=== PATIENT | female | born 1965 | race Asian ===

== ENCOUNTER 2020-07-24 15:26 | Outpatient (REF) | payer BC, SELFPAY ==
[2020-07-24 16:50] LABS: Estimated Average Glucose 180 mg/dL; Hemoglobin A1c % 7.9 %
[2020-07-24 16:52] LABS: Alanine Aminotransferase 28 U/L (0-31); Albumin Level 4.4 g/dL (3.5-5.0); Alkaline Phosphatase 56 U/L (39-117); Anion Gap 14 (12-20); Aspartate Amino Transferase 27 U/L (5-31); Bilirubin Total 0.5 mg/dL (0.0-1.0); Blood Urea Nitrogen 27 mg/dL (9-16); Calcium 9.2 mg/dL (8.4-10.2); Carbon Dioxide 24 mmol/L (22-29); Chloride 104 mmol/L (96-108); Estimated Glomerular Filt Rate 47; Glucose Random 86 mg/dL (60-115); Potassium 4.2 mmol/l (3.3-5.1); Sodium 138 mmol/L (135-145); Total Protein 7.2 g/dL (6.5-8.0)
[2020-07-24 17:14] LABS: Vitamin D 25-OH Total 30.7 ng/mL (>30)
== END 2020-07-24 15:27 | disposition home or self-care (01) ==
LOC: HO.LAB 15:26
PROVIDERS: PCP Internal Medicine; Visit Provider Internal Medicine
DX: E11.65 Type 2 diabetes mellitus with hyperglycemia (principal); I10 Essential (primary) hypertension; E78.5 Hyperlipidemia, unspecified; E55.9 Vitamin D deficiency, unspecified
CPT/HCPCS: 80053; 82306; 83036

== ENCOUNTER → 2020-07-26 07:25 | Outpatient (BNVA) | payer BC, SELFPAY | PROVIDERS: PCP Internal Medicine; Referring Provider Internal Medicine; Visit Provider Internal Medicine | DX: E11.65 Type 2 diabetes mellitus with hyperglycemia (principal); E78.5 Hyperlipidemia, unspecified; I10 Essential (primary) hypertension; E55.9 Vitamin D deficiency, unspecified | CPT/HCPCS: 82947 ==

== ENCOUNTER 2020-07-26 08:13 | Outpatient (REF) | payer BC, SELFPAY ==
[2020-07-26 10:43] LABS: Anion Gap 11 (12-20); Blood Urea Nitrogen 16 mg/dL (9-16); Calcium 9.3 mg/dL (8.4-10.2); Carbon Dioxide 29 mmol/L (22-29); Chloride 104 mmol/L (96-108); Estimated Glomerular Filt Rate > 60; Glucose Random 123 mg/dL (60-115); Potassium 4.6 mmol/l (3.3-5.1); Sodium 139 mmol/L (135-145)
== END 2020-07-26 08:14 | disposition home or self-care (01) ==
LOC: HO.10HDL 08:13
PROVIDERS: Visit Provider Internal Medicine
DX: E11.65 Type 2 diabetes mellitus with hyperglycemia (principal); E55.9 Vitamin D deficiency, unspecified
CPT/HCPCS: 80048

== ENCOUNTER 2020-07-31 16:49 | Outpatient (REF) | payer BC, SELFPAY | END 2020-07-31 16:50 | disposition home or self-care (01) | LOC: HO.LAB 16:49 | PROVIDERS: Visit Provider Nurse Practitioner Family | DX: R05 Cough (principal); Z20.828 Contact with and (suspected) exposure to other viral communicable diseases | CPT/HCPCS: U0003 ==

== ENCOUNTER 2020-09-13 11:42 | Outpatient (REF) | payer BC, SELFPAY ==
[2020-09-17 21:52] LABS: HPV mRNA E6/E7 Not Detected (Not Detected)
== END 2020-09-13 11:43 | disposition home or self-care (01) ==
LOC: HO.LNP 11:42
PROVIDERS: Visit Provider Internal Medicine
DX: Z12.4 Encounter for screening for malignant neoplasm of cervix (principal); Z11.51 Encounter for screening for human papillomavirus (HPV)
CPT/HCPCS: 87624; 87625; 88141; 88142

== ENCOUNTER → 2020-10-25 09:03 | Outpatient (BNVA) | payer BC, SELFPAY | PROVIDERS: PCP Internal Medicine; Visit Provider Physician Assistant ==

== ENCOUNTER 2020-12-15 07:36 | Outpatient (REF) | payer BC, SELFPAY ==
--- NOTE | ~2020-12-15 | MM_ITS ---
EXAMINATION: MM SCREENING DIGITAL BREAST TOMOSYNTHESIS, BILATERAL CLINICAL INFORMATION: Screening. Asymptomatic. The lifetime risk of breast cancer based on the Tyrer-Cuzick Model is 8%. COMPARISON: Mammography: 06/04/2018, 08/01/2013, 07/09/2013 TECHNIQUE: Digital breast tomosynthesis is performed in both the craniocaudal and mediolateral oblique views along with computer-aided detection (CAD). Synthesized 2D images are generated from the tomosynthesis. FINDINGS: There are scattered areas of fibroglandular density (ACR BI-RADS breast composition Category b). There is fine fibronodular parenchymal pattern similar to prior studies. There is no interval mass or architectural abnormality or abnormal calcifications. Biopsy clip marker again noted retroareolar left breast. The bilateral axilla and skin contours are unremarkable. MM/MM tomosynthesis screening BI IMPRESSION: No mammographic evidence of malignancy. ASSESSMENT: BI-RADS 2: Benign RECOMMENDATION: Routine annual mammography screening. This patient's information was entered into a reminder system with a target due date for their next mammogram.
== END 2020-12-15 07:37 | disposition home or self-care (01) ==
LOC: HO.MAMMO 07:36
PROVIDERS: Visit Provider Internal Medicine
DX: Z12.31 Encounter for screening mammogram for malignant neoplasm of breast (principal)
CPT/HCPCS: 77063; 77067

== ENCOUNTER 2020-12-20 08:19 | Outpatient (REF) | payer BC, SELFPAY ==
[2020-12-20 09:14] LABS: Estimated Average Glucose 169 mg/dL; Hemoglobin A1c % 7.5 %
[2020-12-20 09:37] LABS: Alanine Aminotransferase 43 U/L (0-31); Albumin Level 4.2 g/dL (3.5-5.0); Alkaline Phosphatase 62 U/L (39-117); Anion Gap 11 (12-20); Aspartate Amino Transferase 33 U/L (5-31); Bilirubin Total 0.5 mg/dL (0.0-1.0); Blood Urea Nitrogen 14 mg/dL (9-16); Calcium 9.8 mg/dL (8.4-10.2); Carbon Dioxide 27 mmol/L (22-29); Chloride 108 mmol/L (96-108); Cholesterol 153 mg/dL; Estimated Glomerular Filt Rate > 60; Glucose Random 161 mg/dL (60-115); HDL Cholesterol 67 mg/dL; LDL Cholesterol Calculated 77 mg/dl; Sodium 141 mmol/L (135-145); Total Protein 7.1 g/dL (6.5-8.0); Triglycerides 45 mg/dL
[2020-12-20 09:55] LABS: Creatinine Urine 112.07 mg/dL; Microalbum/Creatinine Ratio Ur 15.1 ug/mg cr
[2020-12-20 09:59] LABS: Vitamin D 25-OH Total 16.4 ng/mL (>30)
[2020-12-21 04:16] LABS: LDL Cholesterol Direct 66 mg/dL (<100)
== END 2020-12-20 08:20 | disposition home or self-care (01) ==
LOC: HO.LAB 08:19
PROVIDERS: PCP Internal Medicine; Visit Provider Internal Medicine
DX: E11.65 Type 2 diabetes mellitus with hyperglycemia (principal); E55.9 Vitamin D deficiency, unspecified
CPT/HCPCS: 36415; 80053; 80061; 82043; 82306; 83036; 83721

== ENCOUNTER → 2020-12-27 07:20 | Outpatient (BNVA) | payer BC, SELFPAY | PROVIDERS: PCP Internal Medicine; Visit Provider Internal Medicine ==

== ENCOUNTER 2021-05-23 07:34 | Outpatient (REF) | payer BC, SELFPAY ==
[2021-05-23 08:29] LABS: Estimated Average Glucose 163 mg/dL; Hemoglobin A1c % 7.3 %
[2021-05-23 08:52] LABS: Alanine Aminotransferase 60 U/L (0-31); Albumin Level 4.4 g/dL (3.5-5.0); Alkaline Phosphatase 62 U/L (39-117); Anion Gap 13 (12-20); Aspartate Amino Transferase 46 U/L (5-31); Bilirubin Total 0.6 mg/dL (0.0-1.0); Blood Urea Nitrogen 17 mg/dL (9-16); Calcium 9.6 mg/dL (8.4-10.2); Carbon Dioxide 24 mmol/L (22-29); Chloride 104 mmol/L (96-108); Estimated Glomerular Filt Rate > 60; Glucose Random 84 mg/dL (60-115); Potassium 4.2 mmol/L (3.3-5.1); Sodium 137 mmol/L (135-145); Total Protein 7.4 g/dL (6.5-8.0)
[2021-05-23 09:44] LABS: Vitamin D 25-OH Total 17.9 ng/mL (>30)
== END 2021-05-23 07:35 | disposition home or self-care (01) ==
LOC: HO.LAB 07:34
PROVIDERS: PCP Internal Medicine; Visit Provider Internal Medicine
DX: E11.65 Type 2 diabetes mellitus with hyperglycemia (principal); E55.9 Vitamin D deficiency, unspecified
CPT/HCPCS: 36415; 80053; 82306; 83036

== ENCOUNTER 2024-05-12 07:48 | Outpatient (REF) | payer BC, SELFPAY ==
[2024-05-12 08:11] LABS: MANUAL DIFF FLAG NO
[2024-05-12 08:24] LABS: Basophils Percent Auto 0.4 % (0-2); Eosinophils Absolute Auto 0.1 X10*3/uL (0.0-0.4); Eosinophils Percent Auto 2.3 % (0-4); Hematocrit 39.4 % (37.0-47.0); Hemoglobin 12.8 g/dl (12.0-16.0); Imm Gran Abs Auto 0.01 X10*3/uL (0.00-0.03); Imm Gran Pct Auto 0.2 % (0.0-0.4); Lymphocytes Absolute Auto 2.1 X10*3/uL (1.2-4.9); Lymphocytes Percent Auto 44.1 % (20-40); Mean Corpuscular HGB Conc 32.5 g/dl (31.0-35.0); Mean Corpuscular Hemoglobin 26.3 pg (27.0-33.0); Mean Corpuscular Volume 81.1 fL (80.0-98.0); Mean Platelet Volume 9.8 fL (9.4-12.3); Monocytes Absolute Auto 0.4 X10*3/uL (0.1-1.2); Monocytes Percent Auto 7.8 % (2-11); Neutrophils Absolute Auto 2.1 x10*3/uL (2.0-8.3); Neutrophils Percent Auto 45.2 % (45-73); Platelet Count 207 X10*3/uL (160-400); Red Blood Count 4.86 X10*6/uL (4.20-5.50); Red Cell Distribution Width 12.3 % (11.0-16.0); White Blood Count 4.7 X10*3/uL (4.8-10.8)
[2024-05-12 09:00] LABS: Alanine Aminotransferase 17 U/L (0-31); Albumin Level 4.3 g/dL (3.5-5.0); Alkaline Phosphatase 83 U/L (39-117); Anion Gap 11 (12-20); Aspartate Amino Transferase 16 U/L (5-31); Bilirubin Total 0.5 mg/dL (0.0-1.0); Blood Urea Nitrogen 22 mg/dL (9-16); Calcium 9.9 mg/dL (8.4-10.2); Carbon Dioxide 28 mmol/L (22-29); Chloride 97 mmol/L (96-108); Cholesterol 215 mg/dL (<200); Estimated Glomerular Filt Rate > 60; HDL Cholesterol 75 mg/dL (>40); LDL Cholesterol Calculated 121 mg/dL (<100); Potassium 5.1 mmol/L (3.3-5.1); Sodium 131 mmol/L (135-145); Total Protein 7.5 g/dL (6.5-8.0); Triglycerides 97 mg/dL (<150)
[2024-05-12 09:07] LABS: Glucose Random 386 mg/dL (60-115)
[2024-05-12 09:13] LABS: TSH reflex Free T4 0.55 uIU/mL (0.32-4.0)
[2024-05-12 10:14] LABS: Estimated Average Glucose 352 mg/dL; Hemoglobin A1c % 13.9 % (<6.0)
[2024-05-12 10:35] LABS: Creatinine Urine 32.82 mg/dL; Microalbum/Creatinine Ratio Ur 51.7 ug/mg cr (<30)
[2024-05-17 01:33] LABS: VITAMIN D (1,25 OH) D3 34 pg/mL; Vit D (1,25-Dihydroxy) Total 34 pg/mL (18-72); Vitamin D (1,25 OH) D2 <8 pg/mL
== END 2024-05-12 07:49 | disposition home or self-care (01) ==
LOC: HO.LAB 07:48
PROVIDERS: PCP Internal Medicine; Visit Provider Internal Medicine
DX: R74.8 Abnormal levels of other serum enzymes (principal); E11.40 Type 2 diabetes mellitus with diabetic neuropathy, unspecified; E55.9 Vitamin D deficiency, unspecified
CPT/HCPCS: 36415; 80053; 80061; 82043; 82570; 82652; 83036; 84443; 85025

== ENCOUNTER 2024-06-27 07:09 | Outpatient (REF) | payer BC, SELFPAY ==
[2024-06-27 07:27] LABS: MANUAL DIFF FLAG NO
[2024-06-27 07:42] LABS: Basophils Percent Auto 0.6 % (0-2); Eosinophils Absolute Auto 0.1 X10*3/uL (0.0-0.4); Eosinophils Percent Auto 2.8 % (0-4); Hematocrit 44.3 % (37.0-47.0); Hemoglobin 14.3 g/dl (12.0-16.0); Imm Gran Abs Auto 0.02 X10*3/uL (0.00-0.03); Imm Gran Pct Auto 0.4 % (0.0-0.4); Lymphocytes Absolute Auto 1.9 X10*3/uL (1.2-4.9); Lymphocytes Percent Auto 38.3 % (20-40); Mean Corpuscular HGB Conc 32.3 g/dl (31.0-35.0); Mean Corpuscular Hemoglobin 26.1 pg (27.0-33.0); Mean Corpuscular Volume 80.8 fL (80.0-98.0); Mean Platelet Volume 9.3 fL (9.4-12.3); Monocytes Absolute Auto 0.3 X10*3/uL (0.1-1.2); Monocytes Percent Auto 5.8 % (2-11); Neutrophils Absolute Auto 2.6 x10*3/uL (2.0-8.3); Neutrophils Percent Auto 52.1 % (45-73); Platelet Count 255 X10*3/uL (160-400); Red Blood Count 5.48 X10*6/uL (4.20-5.50); Red Cell Distribution Width 11.9 % (11.0-16.0)
[2024-06-27 08:17] LABS: Hemoglobin A1C 503.9623 umol/L; Hemoglobin A1c % > 14.0 % (<6.0)
[2024-06-27 08:48] LABS: Alanine Aminotransferase 20 U/L (0-31); Albumin Level 4.5 g/dL (3.5-5.0); Alkaline Phosphatase 92 U/L (39-117); Anion Gap 15 (12-20); Aspartate Amino Transferase 23 U/L (5-31); Bilirubin Total 0.6 mg/dL (0.0-1.0); Blood Urea Nitrogen 15 mg/dL (9-16); Calcium 10.3 mg/dL (8.4-10.2); Carbon Dioxide 25 mmol/L (22-29); Chloride 101 mmol/L (96-108); Cholesterol 230 mg/dL (<200); Estimated Glomerular Filt Rate > 60; Glucose Fasting 365 mg/dL (60-99); HDL Cholesterol 77 mg/dL (>40); LDL Cholesterol Calculated 131 mg/dL (<100); Potassium 4.9 mmol/L (3.3-5.1); Sodium 136 mmol/L (135-145); Total Protein 8.1 g/dL (6.5-8.0); Triglycerides 112 mg/dL (<150)
[2024-06-27 08:59] LABS: TSH reflex Free T4 0.68 uIU/mL (0.32-4.0); Vitamin D 25-OH Total 40.4 ng/mL (>30)
[2024-06-27 09:04] LABS: Folate 15.4 ng/mL (> or = 4.0); Vitamin B12 730 pg/mL (200-900)
[2024-06-27 11:08] LABS: Creatinine Urine 63.57 mg/dL; Microalbum/Creatinine Ratio Ur 467.2 ug/mg cr (<30)
== END 2024-06-27 07:10 | disposition home or self-care (01) ==
LOC: HO.LAB 07:09
PROVIDERS: PCP Internal Medicine; Visit Provider Internal Medicine
DX: F10.10 Alcohol abuse, uncomplicated (principal); R74.8 Abnormal levels of other serum enzymes; E11.40 Type 2 diabetes mellitus with diabetic neuropathy, unspecified; E55.9 Vitamin D deficiency, unspecified; I10 Essential (primary) hypertension; R20.0 Anesthesia of skin; R20.2 Paresthesia of skin
CPT/HCPCS: 36415; 80053; 80061; 82043; 82306; 82570; 82607; 82746; 83036; 84443; 85025

== ENCOUNTER 2024-06-28 11:24 | Outpatient (AMB) | payer BC, SELFPAY ==
--- NOTE | 2024-06-28 12:53 | A.OFFPC_ITS ---
Vital Signs 06/28/24 12:54 Height 5 ft 4 in Weight 141 lb BMI 24.2 BP 126/80 Blood Pressure Location Rt brachial Position Sitting Pulse 62 Pulse Source Pulse Oximeter Pulse Oximetry (%) 100 Oxygen Delivery Method Room Air Intake Visit Reasons: Foot injury follow up Intake Note: Pt is here today c/o Rt foot pain Allergies bee venom protein (honey bee) Allergy (Severe, Verified 06/28/24 13:08) Swells Up Medication List - Last Reconciled 06/28/24 by Alanna Lanza MD No Known Home Meds Tobacco use date assessed: 06/28/24 Dental Screening Dental Screen Date: 06/28/24 Did you have a dental visit in the last 12 months?: No Did you have a dental problem in the last 6 months where you did not have access to dental care?: No Was dental information given to patient?: Patient declined HPI Foot injury follow up HPI Details 59-year-old lady with diabetes mellitus, hypertension, hyperlipidemia , here today complaining of burning sensation in both feet. She has been off all her medications for at least 6 months now.. [facility] Medical History Alcohol use disorder, mild, abuse Elevated liver enzymes Rash and nonspecific skin eruption Type 2 diabetes mellitus with diabetic neuropathy Refused influenza vaccine Type 2 diabetes mellitus with hyperglycemia, without long-term current use of insulin COVID-19 virus infection Vitamin D deficiency HLD (hyperlipidemia) HTN (hypertension) Surgical History No pertinent past surgical history Family History Father Unknown family medical history Mother Unknown family medical history Social History Household Members: Spouse Housing: Apartment Alcohol intake: current Alcohol intake frequency: a few times a month Alcohol type: beer and wine Patient Tobacco Use Status: Former Tobacco user Years Smoked: 40 e-Cigarette/Vaping Use: Never Used service: No Current occupational status: employed Current occupation: Hotel Cognitive needs: No Hearing needs: No Vision needs: Yes Questionnaire PHQ-9 Over the last 2 weeks, how often have you been bothered by any of the following problems? 1. Little interest or pleasure in doing things: not at all 2. Feeling down, depressed, or hopeless: not at all 3. Trouble falling or staying asleep, or sleeping too much: several days 4. Feeling tired or having little energy: nearly every day 5. Poor appetite or overeating: several days 6. Feeling bad about yourself - or that you are a failure or have let yourself or your family down: several days 7. Trouble concentrating on things, such as reading the newspaper or watching television: several days 8. Moving or speaking so slowly that other people could have noticed. Or the opposite - being so fidgety or restless that you have been moving around a lot more than usual: not at all 9. Thoughts that you would be better off or of hurting yourself in some way: not at all Total score: 7 Depression Screening Interpretation: Negative Depression Screening Done: Yes 07005 - PHQ-9 Billing: Yes Source: Developed by Drs. Berry Luna, Leanna Roger, Larry Joshua and colleagues, with an educational rex from [employer]. Thrive Questionnaire Date Thrive assessed: 06/28/24 I am a: Patient What is your living situation today?: I have a steady place to live Within the past 12 months, did the food you bought not last and you didn't have the money to get more?: Sometimes True Within the past 12 months, did you worry whether your food would run out before you got money to buy more?: Sometimes True Do you have trouble paying for medicines?: Yes Do you have trouble getting transportation to medical appointments?: No Do you have trouble paying your heating and electricity bill?: Yes Do you have trouble taking care of your child, family member or friend?: No Do you have trouble with day-to-day activities such as bathing, preparing meals, shopping, managing finances, etc.?: Yes Are you currently unemployed and looking for a job?: No Are you interested in more education?: I choose not to answer this question Currently or been in a relationship where the following occur: No concerns reported THRIVE Score: 3 ORTEGA-7 AMB Questionnaire ORTEGA-7 Date ORTEGA - 7 assessed: 06/28/24 Source: Developed by Drs. Berry Luna, Leanna Roger, Larry Joshua and colleagues, with an educational rex from [employer] ORTEGA-7 Assessment Billing ORTEGA-7 Assessment Tool: pt declined-do not bill Review of Systems Const Denies fatigue and Denies headache(s) Eyes Details: Seen at [facility], , recently seen at [facility] optometry Reports blurry vision (left eye), Denies diplopia and Denies eye discharge ENT Denies change in voice, Denies dysphagia, Denies headache(s) and Denies hoarseness Card Denies chest pain, Denies irregular heart rhythm, Denies dyspnea and Reports other Resp Denies cough and Denies dyspnea GI Denies abdominal pain, Denies change in bowel habits, Denies dysphagia, Denies diarrhea and Denies nausea Reports nocturia, Denies dysuria and Denies vaginal discharge Musc Denies myalgias and Denies muscle cramps Skin/Breast Denies lesions and Denies rash Neuro Denies headache(s) Psych Denies anxiety and Denies depression Endo Denies cold intolerance, Denies fatigue and Denies heat intolerance Blane/Lymph Denies easy bruising Aller/Immun Reports no additional complaints Physical exam (Primary Care) Vital Signs: Last Vital Signs Pulse 62 06/28/24 12:54 BP 126/80 06/28/24 12:54 Pulse Ox 100 06/28/24 12:54 Oxygen Delivery Method Room Air 06/28/24 12:54 BMI result Body Mass Index 24.2 Tobacco/Smoking Status: Tobacco use Status Tobacco use date assessed 06/28/24 06/28/24 12:59 Patient Tobacco Use Status Former Tobacco user 06/28/24 12:54 e-Cigarette/Vaping Use Never Used 06/28/24 12:59 PHQ-9: PHQ-9 Score PHQ-9: Total score 9 06/28/24 13:08 Depression Screening Interpretation: Negative Thrive Assessment: Date of Thrive Assessment Date Thrive assessed 06/28/24 06/28/24 12:59 Currently or been in a relationship where the following occur: No concerns reported Const General: cooperative, comfortable and no acute distress Orientation/consciousness: patient oriented x3 HENMT Ears: hearing grossly normal bilaterally, external ears normal, TM's normal bilaterally and EAC's normal General nose exam: Normal external nose present, Normal nasal mucous membranes and turbinates present and No nasal discharge present Mouth: Normal oral and palatal mucosa present, oropharynx normal and moist mucous membranes Throat: Yes posterior oropharynx normal Eyes General: appearance normal, both eyes and all related structures Pupils: Equal, round and reactive pupils present Neck Neck: Yes full ROM, Yes no lymphadenopathy and Yes supple Resp Effort & Inspection: normal respiratory effort and able to speak in complete sentences Auscultation: clear to auscultation bilaterally Cardio Rate: regular rate Rhythm: regular rhythm Heart sounds: S1 normal heart sound present and S2 normal heart sound present GI Inspection: Yes normal to inspection Palpation (GI): Soft to palpation, nontender and no masses Auscultation: normal bowel sounds Skin General skin exam: no rashes or lesions noted Neuro General: patient oriented x3, gait normal, tone normal, moves all extremities, no focal motor deficits and decrease sensation to monofilament (Plantar aspect of both feetxxxxxxxxxxxxxxxxxxxxxxxxxxxxxxxxxxxxxxxxxxxxxxxx) Cranial nerves: Yes Equal, round and reactive pupils present Cognition (Neuro): normal cognition Gait exam (Neuro): Normal gait present Motor exam (neuro): 5/5 motor strength present throughout Extrem General: Yes full ROM, Yes no joint enlargement, Yes no pedal edema, Yes no calf tenderness and Yes normal gait Results Reviewed Results Reviewed: Name: Cha Clark Age/Sex: 59/F : 1965 Unit#: [id number] Attend Dr: Alanna Lanza MD Re06/27/24 Status: DEP [facility]F [facility] Disch: SPEC : [id number] MIMA: 06/27/24 STATUS: COMP REQ : [id number] RECD: 06/27/[address]: Alanna Lanza MD COMP: 06/27/24 ENTERED: 06/27/[address]: ORDERED: CBC Auto Diff Test Result Flag Reference WBC 5.0 4.8-10.8 X10*3/uL RBC 5.48 4.20-5.50 X10*6/uL HGB 14.3 12.0-16.0 g/dl HCT 44.3 37.0-47.0 % MCV 80.8 80.0-98.0 fL MCH 26.1 L 27.0-33.0 pg MCHC 32.3 31.0-35.0 g/dl RDW 11.9 11.0-16.0 % PLT 255 160-400 X10*3/uL MPV 9.3 L 9.4-12.3 fL Neut Pct Auto 52.1 45-73 % ImGran Pct Auto 0.4 0.0-0.4 % Lymp Pct Auto 38.3 20-40 % [place] Pct Auto 5.8 2-11 % Eos Pct Auto 2.8 0-4 % Baso Pct Auto 0.6 0-2 % NRBC Pct Auto 0.0 0.0-0.2 /100WBC ANC Neut Abs # 2.6 2.0-8.3 x10*3/uL ImGran Abs Auto 0.02 0.00-0.03 X10*3/uL Lymph Abs Auto 1.9 1.2-4.9 X10*3/uL [place] Abs Auto 0.3 0.1-1.2 X10*3/uL Eos Abs Auto 0.1 0.0-0.4 X10*3/uL Baso Abs Auto 0.0 0.0-0.2 X10*3/uL NRBC Abs Auto 0.000 0.0-0.012 X10*3/uL Name: Cha Clark Age/Sex: 59/F : 1965 Unit#: [id number] Attend Dr: Alanna Lanza MD Re06/27/24 Status: DEP REF Location: [facility] Disch: SPEC : [id number] MIMA: 06/27/24 STATUS: COMP REQ : [id number] RECD: 06/27/[address] [facility] [address]: Alanna Lanza MD COMP: 06/27/24 ENTERED: 06/27/[address] [facility] [address]: ORDERED: CMP Fast, Lipid Panel, Vitamin D 25-OH, TSH Rflx Test Result Flag Reference Sodium 136 135-145 mmol/L Potassium 4.9 3.3-5.1 mmol/L CL 101 96-108 mmol/L CO2 25 22-29 mmol/L Gap 15 12-20 BUN 15 9-16 mg/dL Creat 0.87 0.5-1.4 mg/dL EGFR > 60 NOTE: For -[place] individuals, multiply the result by 1.210. Chronic Kidney Disease: Estimated GFR < 60 mL/min/1.73m2 Severe Kidney Disease: Estimated GFR < 15 mL/min/1.73m2 FBS 365 *H 60-99 mg/dL Critical value for test(s):FBS Results called to and read back by:DEANN Person calling:ALKASAB Date:06/27/24 Time:8:48. A fasting glucose of 126 mg/dl or greater on more than one occasion is considered diagnostic of diabetes. CA 10.3 H 8.4-10.2 mg/dL Total Bili 0.6 0.0-1.0 mg/dL AST (GOT) 23 5-31 U/L ALT (GPT) 20 0-31 U/L Protein, Total 8.1 H 6.5-8.0 g/dL Alb 4.5 3.5-5.0 g/dL Triglyceride 112 <150 mg/dL Desirable Triglyceride: less than 150 mg/dL Borderline High Triglyceride 150-199 mg/dL High Triglyceride: 200-499 mg/dL Very High Triglyceride: greater than or equal to 5OO mg/dL Cholesterol 230 H <200 mg/dL Desirable Cholesterol: less than 200 mg/dL Borderline High Cholesterol: 200-239 mg/dL High Cholesterol: greater than 239 mg/dL LDL Calculated 131 H <100 mg/dL Desirable LDL: less than 100 mg/dL Near Optimal/Above Optimal LDL: 110-129 mg/dL Borderline High LDL: 130-159 mg/dL High LDL: 160-189 mg/dL Very High LDL: greater than or equal to 190 mg/dL HDL 77 >40 mg/dL Desirable HDL: greater than 40 mg/dL Note: This HDL assay may give artificially low results in patients with liver disease. Alk Phos 92 39-117 U/L Vit D 25-OH Tot 40.4 >30 ng/mL Health Based Reference Values* < 20 ng/mL Deficient 20-30 ng/mL Insufficient > 30 ng/mL Sufficient Laboratory Tests 06/27/24 07:25 Estimat Average Glucose TNP Hemoglobin A1c % > 14.0 H Coding Level of Care Code Est Pt Level 4 (25443) Complex EM visit Add On G2211 Diagnoses Type 2 diabetes mellitus with hyperglycemia, without long-term current use of insulin E11.65 Hypertension, unspecified type I10 Hypertension type: unspecified Type 2 diabetes mellitus with diabetic neuropathy E11.40 Alcohol use disorder, mild, abuse F10.10 Assessment & Plan Assessment & Plan (1) Type 2 diabetes mellitus with hyperglycemia, without long-term current use of insulin: Code(s): E11.65 - Type 2 diabetes mellitus with hyperglycemia Category: Medical Plan: Has uncontrolled diabetes mellitus , noncompliant with medications. Hemoglobin A1c now is at over 14%. Patient absolutely refusing to start insulin, agreeable to go back on metformin ER a 1000 mg 1 tablet twice a day, pioglitazone 30 mg daily, and Trulicity 1.5 mg once a week. Endocrine consult ordered (2) HTN (hypertension): Code(s): I10 - Essential (primary) hypertension Category: Medical Qualifiers: Hypertension type: unspecified Qualified Code(s): I10 - Essential (primary) hypertension Plan: Blood pressure at goal of less than 130/80. Continue with lisinopril 5 mg once a day. Reinforced importance of following a low sodium diet, getting regular exercise, and lowering stress levels. (3) Type 2 diabetes mellitus with diabetic neuropathy: Code(s): E11.40 - Type 2 diabetes mellitus with diabetic neuropathy, unspecified Category: Medical Plan: Will start on gabapentin 300 mg at bedtime. Endocrine consult ordered (4) Alcohol use disorder, mild, abuse: Code(s): F10.10 - Alcohol abuse, uncomplicated Category: Medical Plan: Patient strongly encouraged to quit alcohol intake , declined referral alcohol detox center Orders: Referrals Endocrinology Referral E11.40 - Type 2 diabetes mellitus with diabetic neuropathy, unspecified, E11.65 - Type 2 diabetes mellitus with hyperglycemia Medications: New metformin ER 1,000 mg PO BID 60 tabs 5RF E11.65 - Type 2 diabetes mellitus with hyperglycemia pioglitazone 30 mg PO DAILY 30 tabs 5RF lisinopril 5 mg PO DAILY 30 tabs 5RF Changed From gabapentin 300 mg PO TID 30 days 90 caps 11RF To gabapentin 300 mg PO BEDTIME 30 days 30 caps 5RF From atorvastatin 40 mg PO DAILY To atorvastatin 10 mg PO DAILY 30 tabs 5RF Refilled dulaglutide (Trulicity) 1.5 mg (0.5 mL) subcut QWEEK 30 days 2 mL 5RF Discontinued empagliflozin Discontinued Reason: Patient no longer taking 25 mg PO DAILY 30 days 30 tabs 11RF dulaglutide Discontinued Reason: Patient no longer taking 3 mg (0.5 mL) subcut QWEEK 30 days 2.5 mL 11RF pen needle, diabetic Discontinued Reason: Patient no longer taking One daily 100 ea 11RF E11.65 - Type 2 diabetes mellitus with hyperglycemia atorvastatin Discontinued Reason: Patient no longer taking 40 mg PO DAILY 30 days 30 tabs 11RF gabapentin Discontinued Reason: Patient no longer taking 300 mg PO TID 30 days 90 caps 6RF E11.65 - Type 2 diabetes mellitus with hyperglycemia pioglitazone Discontinued Reason: Patient no longer taking 15 mg PO DAILY 30 days 30 tabs 4RF
[2024-06-28 12:54] VITALS: BP 126/80; PULSE 62; O2SAT 100; BMI 24.2
== END 2024-06-28 13:41 | disposition home or self-care (01) ==
LOC: HO.HMCC 11:24
PROVIDERS: PCP Internal Medicine; Visit Provider Internal Medicine
DX: E11.65 Type 2 diabetes mellitus with hyperglycemia (principal); I10 Essential (primary) hypertension; E11.40 Type 2 diabetes mellitus with diabetic neuropathy, unspecified; F10.10 Alcohol abuse, uncomplicated

== ENCOUNTER 2024-07-06 07:45 | Outpatient (AMB) | payer BC, SELFPAY ==
--- NOTE | 2024-07-05 11:44 | MHC.OFFVIS ---
Intake Visit Reasons: Type 2 DM/CONF Allergies bee venom protein (honey bee) Allergy (Severe, Verified 06/28/24 13:08) Swells Up [facility] Medical History Alcohol use disorder, mild, abuse Elevated liver enzymes Rash and nonspecific skin eruption Type 2 diabetes mellitus with diabetic neuropathy Refused influenza vaccine Type 2 diabetes mellitus with hyperglycemia, without long-term current use of insulin COVID-19 virus infection Vitamin D deficiency HLD (hyperlipidemia) HTN (hypertension) Surgical History No pertinent past surgical history Family History Father Unknown family medical history Mother Unknown family medical history Social History Household Members: Spouse Housing: Apartment Alcohol intake: current Alcohol intake frequency: a few times a month Alcohol type: beer and wine Patient Tobacco Use Status: Former Tobacco user Years Smoked: 40 e-Cigarette/Vaping Use: Never Used service: No Current occupational status: employed Current occupation: Hotel Cognitive needs: No Hearing needs: No Vision needs: Yes Coding
--- NOTE | 2024-07-06 08:06 | A.OFFVIS_ITS ---
Vital Signs 07/06/24 08:08 Height 5 ft 4 in Weight 138 lb 14.259 oz BMI 23.8 BP 128/76 Blood Pressure Location Rt brachial Position Sitting Pulse 75 Pulse Source Pulse Oximeter Intake Visit Reasons: Type 2 DM/CONF Intake Note: Patient presents today to re-establish treatment for Type 2 Diabetes Mellitus: Last Diabetic eye exam was on: DUE Last Podiatry exam was on: Does not see a Physician Assistant Primary Care Most recent HbA1c: >14.0%, 06/27/2024 Random Glucose- 317 mg/dL, Today Diamond Die Polisher Required: No Accompanied by: Self / Same As Patient Allergies bee venom protein (honey bee) Allergy (Severe, Verified 07/20/24 07:56) Swells Up Medication List - Last Reconciled 07/06/24 by Teresa Hand NP atorvastatin 10 mg PO DAILY dulaglutide (Trulicity) 1.5 mg (0.5 mL) subcut QWEEK 30 days gabapentin 300 mg PO BEDTIME 30 days lisinopril 5 mg PO DAILY metformin ER 1,000 mg (2 x 500 mg) PO BID 30 days pioglitazone 30 mg PO DAILY HPI Comments Details: 55 YO F with PMHx T2DM, HTN, HLD who is seen in F/U for T2DM. We checked full antibodies for IMMANUEL which were negative. However, her C- peptide was low for the level of hyperglycemia, indicating that she does have some beta cell dysfunction. Initially diagnosed with T2DM in November 2017 in when presented with numbness/tingling in her feet. Was initially started on treatment with Metformin. She is unable to tolerate more than 1000mg daily Current regimen Metformin XR 500 mg PO bid, Trulicity 1.5 mg weekly and Actos 15 mg PO daily. She had stopped all of her medications before her last visit and has restarted them. She does report an episode one week ago when her glucose was 327 and she felt weak and briefly blacked out but did not fall. Immediately afterward she sat for a few minutes and symptoms improved. NO seizure activity. No palpitations or chest pain. She does report intermittent vertigo. Denies recent URI/ear infection. Last night she again felt off and checked her glucose and it was in the 170'a. 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 during the day, radings are 100-170 c/o numbness right foot plantar aspect, no cramping she has neuropathy which has been worse since the is only taking gabapentin once daily. [facility] Medical History Alcohol use disorder, mild, abuse Elevated liver enzymes Rash and nonspecific skin eruption Type 2 diabetes mellitus with diabetic neuropathy Refused influenza vaccine Type 2 diabetes mellitus with hyperglycemia, without long-term current use of insulin COVID-19 virus infection Vitamin D deficiency HLD (hyperlipidemia) HTN (hypertension) Surgical History No pertinent past surgical history Family History Father Unknown family medical history Mother Unknown family medical history Social History Household Members: Spouse Housing: Apartment Alcohol intake: current Alcohol intake frequency: a few times a month Alcohol type: beer and wine Patient Tobacco Use Status: Former Tobacco user Years Smoked: 40 e-Cigarette/Vaping Use: Never Used service: No Current occupational status: employed Current occupation: Hotel Cognitive needs: No Hearing needs: No Vision needs: Yes Physical Exam Vital Signs: Last Vital Signs Pulse 75 07/06/24 08:08 BP 128/76 07/06/24 08:08 BMI result Body Mass Index 23.8 Const Other: Absence of Cushingoid features. Absence of acromegalic features. Neck exam re veals nl size thyroid about 15 gms. No thyroid nodules palpable. No carotid bruits present. Lungs CTA. Heart S1 S2, Reg R/R. No M/R G. Skin exam reveals absence of vitiligo or acanthosis nigricans. No edema EOMI, PERRLA, hand grasp 5/5, upper and lower extremities 5/5, CN intact (olfactory not tested) Visual exam of foot performed. No ulcerations or open lesions. No inter digit maceration or fissuring. No onychomycosis, no callouses. Sensation diinished right dorsal aspect of foot, toes wnl monofilament exam. Vibratory sensation is diminished right dorsal aspect of foot, normal toes with 128 Hz tuning fork. Results Reviewed Results Reviewed: Laboratory Last Values Glucose (Clinic) 317 mg/dL (60-115) H 07/06/24 08:13 Assessment & Plan Assessment & Plan (1) Type 2 diabetes mellitus with hyperglycemia, without long-term current use of insulin: Code(s): E11.65 - Type 2 diabetes mellitus with hyperglycemia Category: Medical Plan: Type 2 diabetic with recent A1c over 14% when she was off all her medications. She does have neuropathy, nephropathy with increase urine in protein recently started on lisinopril by PCP. Numbers improving. We will increase Trulicity to 3.0 mg. Continue metformin 500 mg XR b.i.d. as she is not able to tolerate a 1000 b.i.d., Actos 15 mg. She asks for a referral to Dermatology for eczema on her leg. She had an event a week ago where she blacked out but did not fall and has had some intermittent vertigo since that time and felt that it might occur again last night but she did not black out and glucose was in the 170's. Her neurologic exam was within normal limits today she was counseled that I did not believe this was related to her glucose. At the time her sugar was 327 however given that she had a prior A1c of 14% it is doubtful that this would have caused her symptoms. She was counseled to see her PCP. She has an appointment in August and advised that she should call the office and be seen sooner and I will send a copy of this note to the PCP. She was also advised to call 911 if the symptoms reoccurred. I called Dr. Lanza office and spoke with DALE Cline to advise primary of situation. Medications: New metformin ER 1,000 mg (2 x 500 mg) PO BID 120 tabs 11RF 30 days Discontinued metformin ER Discontinued Reason: Doctor's Order 1,000 mg PO BID 60 tabs 5RF E11.65 - Type 2 diabetes mellitus with hyperglycemia Patient Instructions: The patient was counseled to achieve a target A1C of 7% (154 avg). Fasting blood sugars should be 90-130 in the morning and less than 180 two hours after meals. Reviewed the relationship between poor diabetic control and the development of complications. The patient was counseled to always carry a source of sugar and on the rule of 15's: Take 3 glucose tablets and repeat again in 15 minutes if blood sugar is not in normal range. Continue to repeat every 15 minutes until blood sugar is normal. In Check your feet daily looking for any signs of infection, ulceration and seek medical attention if this occurs. Break in shoes gradually and do not wear open-toed shoes or walk barefooted. Coding Level of Care Code Est Pt Level 4 (93177) Complex EM visit Add On G2211 Diagnoses Type 2 diabetes mellitus with hyperglycemia, without long-term current use of insulin E11.65 Time Spent (min) 35 Comment Time spent reviewing labs/provider notes, face to face, chart doc
[2024-07-06 08:08] VITALS: BP 128/76; PULSE 75; BMI 23.8
[2024-07-06 08:17] LABS: Glucose, Whole Blood 317 mg/dL (60-115)
== END 2024-07-06 08:45 | disposition home or self-care (01) ==
PROVIDERS: PCP Internal Medicine; Visit Provider Nurse Practitioner Adult Health
DX: E11.65 Type 2 diabetes mellitus with hyperglycemia (principal)
CPT/HCPCS: 99214

== ENCOUNTER → 2024-07-06 07:45 | Outpatient (BNVA) | payer BC, SELFPAY | PROVIDERS: PCP Internal Medicine; Visit Provider Nurse Practitioner Adult Health | DX: E11.65 Type 2 diabetes mellitus with hyperglycemia (principal); Z79.84 Long term (current) use of oral hypoglycemic drugs | CPT/HCPCS: 82947 ==

== ENCOUNTER 2024-07-20 07:39 | Outpatient (AMB) | payer BC, SELFPAY ==
[2024-07-20 07:46] VITALS: BP 108/64; PULSE 55; BMI 24.0
--- NOTE | 2024-07-20 07:46 | MHC.OFFVIS ---
Vital Signs 07/20/24 07:46 Height 5 ft 4 in Weight 139 lb 8.842 oz BMI 24.0 BP 108/64 Blood Pressure Location Rt brachial Position Sitting Pulse 55 Pulse Source Pulse Oximeter Intake Visit Reasons: T2DM/VM NOT SETUP Intake Note: Patient presents today for D2MT follow up visit. Last Diabetic Eye exam: 05/2024 Last Podiatry Visit: Doesn't have one Random Glucose: 157 mg/dl HgA1c: >14.0% 06/27/24 Lard Renderer Required: No Accompanied by: Self / Same As Patient Allergies bee venom protein (honey bee) Allergy (Severe, Verified 07/20/24 07:56) Swells Up HPI Comments Details: 55 YO F with PMHx T2DM, HTN, HLD who is seen in F/U for T2DM. We checked full antibodies for IMMANUEL which were negative. However, her C-peptide was low for the level of hyperglycemia, indicating that she does have some beta cell dysfunction. Initially diagnosed with T2DM in November 2017 in when presented with numbness/tingling in her feet. Was initially started on treatment with Metformin. She is unable to tolerate more than 1000mg daily Current regimen Metformin XR 500 mg PO bid, Trulicity 1.5 mg weekly and Actos 15 mg PO daily. She had stopped all of her medications before her last visit and has restarted them.She does report an episode one week ago when her glucose was 327 and she felt weak and briefly blacked out but did not fall. Immediately afterward she sat for a few minutes and symptoms improved. NO seizure activity. No palpitations or chest pain. She does report intermittent vertigo. Denies recent URI/ear infection. Last night she again felt off and checked her glucose and it was in the 170'a. 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 during the day, radings are 100-170 c/o numbness right foot plantar aspect, no cramping she has neuropathy which has been worse since the is only taking gabapentin once daily. [facility] Medical History Alcohol use disorder, mild, abuse Elevated liver enzymes Rash and nonspecific skin eruption Type 2 diabetes mellitus with diabetic neuropathy Refused influenza vaccine Type 2 diabetes mellitus with hyperglycemia, without long-term current use of insulin COVID-19 virus infection Vitamin D deficiency HLD (hyperlipidemia) HTN (hypertension) Surgical History No pertinent past surgical history Family History Father Unknown family medical history Mother Unknown family medical history Social History Household Members: Spouse Housing: Apartment Alcohol intake: current Alcohol intake frequency: a few times a month Alcohol type: beer and wine Patient Tobacco Use Status: Former Tobacco user Years Smoked: 40 e-Cigarette/Vaping Use: Never Used service: No Current occupational status: employed Current occupation: Hotel Cognitive needs: No Hearing needs: No Vision needs: Yes Physical Exam Vital Signs: Last Vital Signs Pulse 55 07/20/24 07:46 BP 108/64 07/20/24 07:46 BMI result Body Mass Index 24.0 Const Other: Absence of Cushingoid features. Absence of acromegalic features. Neck exam reveals nl size thyroid about 15 gms. No thyroid nodules palpable. No carotid bruits present. Lungs CTA. Heart S1 S2, Reg R/R. No M/R G. Skin exam reveals absence of vitiligo or acanthosis nigricans. No edema Neuro exam grossly non focal. 5/5 muscle strength, eomi, perrla cn nerves intact (olfactory not tested) Dry scaly skin on lower leg, ;large patch Results Reviewed Results Reviewed: Laboratory Last Values Glucose (Clinic) 157 mg/dL (60-115) H 07/20/24 07:58 Assessment & Plan Assessment & Plan (1) Eczema: Code(s): L30.9 - Dermatitis, unspecified Plan patient requested derm referral Orders: Referrals Dermatology Referral L30.9 - Dermatitis, unspecified Medications: New dulaglutide (Trulicity) 3 mg (0.5 mL) subcut QWEEK 28 days 2 mL 11RF Changed From gabapentin 300 mg PO BEDTIME 30 days 30 caps 5RF To gabapentin 300 mg PO BID 30 days 60 caps 5RF From metformin ER 1,000 mg (2 x 500 mg) PO BID 30 days 120 tabs 11RF To metformin ER 500 mg PO BID 30 days 60 tabs 11RF Discontinued dulaglutide Discontinued Reason: Doctor's Order 1.5 mg (0.5 mL) subcut QWEEK 30 days 2 mL 5RF Coding Level of Care Code Est Pt Level 4 (96496) Complex EM visit Add On G2211 Diagnoses Eczema L30.9 Time Spent (min) 35 Comment Time spent reviewing labs/provider notes, face to face, chart doc
[2024-07-20 08:01] LABS: Glucose, Whole Blood 157 mg/dL (60-115)
== END 2024-07-20 08:29 | disposition home or self-care (01) ==
PROVIDERS: PCP Internal Medicine; Visit Provider Nurse Practitioner Adult Health
DX: L30.9 Dermatitis, unspecified (principal)
CPT/HCPCS: 99214

== ENCOUNTER → 2024-07-20 07:39 | Outpatient (BNVA) | payer BC, SELFPAY | PROVIDERS: PCP Internal Medicine; Visit Provider Nurse Practitioner Adult Health | DX: E11.9 Type 2 diabetes mellitus without complications (principal); L30.9 Dermatitis, unspecified | CPT/HCPCS: 82947 ==

== ENCOUNTER 2024-09-08 07:57 | Outpatient (AMB) | payer BC, SELFPAY ==
--- NOTE | 2024-09-08 07:59 | A.OFFVIS_ITS ---
Vital Signs 09/08/24 08:05 Height 5 ft 4 in Weight 136 lb 10.986 oz BMI 23.5 BP 112/68 Blood Pressure Location Rt brachial Position Sitting Pulse 99 Pulse Source Pulse Oximeter Intake Visit Reasons: Type 2 DM Intake Note: Patient presents today for a follow-up on Type 2 Diabetes Mellitus: Last Diabetic eye exam was on: DUE Last Podiatry exam was on: Does not see a Reinsurance Clerk Most recent HbA1c: >14.0%, 06/27/2024 Random Glucose- 132 mg/dL, Today Assistant Coach Required: No Accompanied by: Self / Same As Patient Allergies bee venom protein (honey bee) Allergy (Severe, Verified 09/08/24 08:00) Swells Up HPI Comments Details: 55 YO F with PMHx T2DM, HTN, HLD who is seen in F/U for T2DM. full antibodies for IMMANUEL were negative 2018. However, her C-peptide was low for the level of hyperglycemia, indicating that she does have some beta cell dysfunction. Initially diagnosed with T2DM in November 2017 in when presented with numbness/tingling in her feet. Was initially started on treatment with Metformin. She is unable to tolerate more than 1000mg daily Current regimen Metformin XR 500 mg PO bid, Trulicity 1.5 mg weekly and Actos 15 mg PO daily. She had stopped all of her medications before her visit in June. She is now taking them consistently and is working on balancing her diet. She has had some weakness in her arms and legs, several episodes of near syncope, synocpe in the past and c/o numbness in her right foot. She is seeing her pcp today and plans to discuss w her. GLucometer readings: average 169 total readings only 4 Has newer onset nephropathy: microalbumin 297 07/17 eGFR>60 + neuropathy [facility] Medical History Alcohol use disorder, mild, abuse Elevated liver enzymes Rash and nonspecific skin eruption Type 2 diabetes mellitus with diabetic neuropathy Refused influenza vaccine Type 2 diabetes mellitus with hyperglycemia, without long-term current use of insulin COVID-19 virus infection Vitamin D deficiency HLD (hyperlipidemia) HTN (hypertension) Surgical History No pertinent past surgical history Family History Father Unknown family medical history Mother Unknown family medical history Social History Household Members: Spouse Housing: Apartment Alcohol intake: current Alcohol intake frequency: a few times a month Alcohol type: beer and wine Patient Tobacco Use Status: Former Tobacco user Years Smoked: 40 e-Cigarette/Vaping Use: Never Used service: No Current occupational status: employed Current occupation: [employer] Cognitive needs: No Hearing needs: No Vision needs: Yes Physical Exam Vital Signs: Last Vital Signs Pulse 99 09/08/24 08:05 BP 112/68 09/08/24 08:05 BMI result Body Mass Index 23.5 Const Other: Absence of Cushingoid features. Absence of acromegalic features. Neck exam reveals nl size thyroid about 15 gms. No thyroid nodules palpable. Heart S1 S2, Reg R/R. No M/R G. Skin exam reveals absence of vitiligo or acanthosis nigricans. Visual exam of foot performed. No ulcerations or open lesions. No inter digit maceration or fissuring. No onychomycosis, no callouses. Sensation intact to monofilament exam. Vibratory sensation is absent right ball of the foot with 128 Hz tuning fork. Results Reviewed Results Reviewed: Laboratory Last Values Glucose (Clinic) 132 mg/dL (60-115) H 09/08/24 08:09 Assessment & Plan Assessment & Plan (1) Type 2 diabetes mellitus with hyperglycemia, without long-term current use of insulin: Code(s): E11.65 - Type 2 diabetes mellitus with hyperglycemia Category: Medical Plan: Type 2 diabetic with negative antibodies tested 2018. A1c had jumped to over 14% last June as she had not been taking her medication at that time. She has been consistent with med since then. Glucose average 169 on glucometer however they are only 4 readings. She declined wearing an in office placed sensor for 2 weeks. She will consider at her next visit. Continue current medications and we will recheck A1c in 3 months. Was restarted on statin last visit she will have a fasting profile done before her next visit. Newer onset nephropathy. We will repeat this before her next visit as this is her 1st time she has had elevated readings. Preserved renal function and on josiah-i. She has been having some muscle weakness arms and legs and occasional pinprick sensations throughout the body. She is seeing her PCP today and we will discuss with her. Orders: Orders Aspartate Amino Transferase 3 Months E11.65 - Type 2 diabetes mellitus with hyperglycemia Alanine Aminotransferase 3 Months E11.65 - Type 2 diabetes mellitus with hyperglycemia Basic Metabolic Panel 3 Months E11.65 - Type 2 diabetes mellitus with hyperglycemia Microalbumin, Random (w Creat) 3 Months E11.65 - Type 2 diabetes mellitus with hyperglycemia Creatinine Urine 3 Months E11.65 - Type 2 diabetes mellitus with hyperglycemia Lipid Panel 3 Months E11.65 - Type 2 diabetes mellitus with hyperglycemia Patient Instructions: The patient was counseled to achieve a target A1C of 7% (154 avg). Fasting blood sugars should be 90-130 in the morning and less than 180 two hours after meals. Reviewed the relationship between poor diabetic control and the development of complications. Check your feet daily looking for any signs of infection, ulceration and seek medical attention if this occurs. Break in shoes gradually and do not wear open-toed shoes or walk barefooted. Coding Level of Care Code Est Pt Level 4 (51303) Complex EM visit Add On G2211 Diagnoses Type 2 diabetes mellitus with hyperglycemia, without long-term current use of insulin E11.65 Time Spent (min) 30 Comment Time spent reviewing labs/provider notes, face to face, chart doc
[2024-09-08 08:05] VITALS: BP 112/68; PULSE 99; BMI 23.5
[2024-09-08 08:13] LABS: Glucose, Whole Blood 132 mg/dL (60-115)
== END 2024-09-08 08:35 | disposition home or self-care (01) ==
PROVIDERS: PCP Internal Medicine; Visit Provider Nurse Practitioner Adult Health
DX: E11.65 Type 2 diabetes mellitus with hyperglycemia (principal)
CPT/HCPCS: 99214

== ENCOUNTER 2024-09-08 07:57 | Outpatient (REF) | payer BC, SELFPAY | END 2024-09-08 07:58 | disposition home or self-care (01) | LOC: HO.LAB 07:57 | PROVIDERS: PCP Internal Medicine; Visit Provider Nurse Practitioner Adult Health | DX: Z00.01 Encounter for general adult medical examination with abnormal findings (principal); E11.65 Type 2 diabetes mellitus with hyperglycemia; F10.10 Alcohol abuse, uncomplicated; I10 Essential (primary) hypertension; E55.9 Vitamin D deficiency, unspecified; E11.40 Type 2 diabetes mellitus with diabetic neuropathy, unspecified; Z79.84 Long term (current) use of oral hypoglycemic drugs; Z71.89 Other specified counseling | CPT/HCPCS: 82947; 96127 ==

== ENCOUNTER 2024-09-08 09:03 | Outpatient (AMB) | payer BC, SELFPAY ==
[2024-09-08 10:23] VITALS: BP 130/76; PULSE 82; O2SAT 99; BMI 23.5
--- NOTE | 2024-09-08 10:23 | A.OFFPC_ITS ---
Vital Signs 09/08/24 10:23 Height 5 ft 4 in Weight 137 lb BMI 23.5 BP 130/76 Blood Pressure Location Rt brachial Position Sitting Pulse 82 Pulse Source Pulse Oximeter Pulse Oximetry (%) 99 Oxygen Delivery Method Room Air Intake Visit Reasons: PE Intake Note: Pt is here today for her PE: last mammogram 12/15/20, papsmear 09/14/20, cologuard 10/31/20 Allergies bee venom protein (honey bee) Allergy (Severe, Verified 09/12/24 01:25) Swells Up Medication List - Last Reconciled 09/12/24 by Alanna Lanza MD atorvastatin 10 mg PO DAILY dulaglutide (Trulicity) 3 mg (0.5 mL) subcut QWEEK 28 days gabapentin 300 mg PO Q8H 30 days lisinopril 5 mg PO DAILY metformin ER 500 mg PO BID 30 days pioglitazone 30 mg PO DAILY Tobacco use date assessed: 09/08/24 Dental Screening Dental Screen Date: 09/08/24 Did you have a dental visit in the last 12 months?: No Did you have a dental problem in the last 6 months where you did not have access to dental care?: No Was dental information given to patient?: Patient has dentist HPI PE HPI Details 59-year-old lady here today for physical exam. She has diabetes mellitus currently followed at [facility] endocrine clinic. Currently taking Trulicity 3 mg once a week, metformin ER 500 mg 1 tablet twice a day and pioglitazone 30 mg daily. Blood sugar has been improving since taking her medications regularly. Complains of burning and tingling sensation in feet, despite taking gabapentin 300 mg twice a day. Regular diabetic monitoring through eye exams and diabetic foot exams has shown stable diabetic retinopathy without significant progression She continues to drink alcohol drinks but has cut back, now drinks on the weekends. Has hypertension blood pressure stable controlled on current treatment with lisinopril 5 mg daily Recent vaccinations: Shingles and flu immunization completed; COVID-19 vaccine booster not done, up-to-date with her pneumonia vaccination and Tdap - Screening: Cologuard with negative res ults, last Pap smear done in 2020, due every 5 years, and mammogram referral pending. [facility] Medical History (Updated 09/12/24 @ 01:39 by Alanna Lanza MD) Alcohol use disorder, mild, abuse Elevated liver enzymes Rash and nonspecific skin eruption Type 2 diabetes mellitus with diabetic neuropathy Type 2 diabetes mellitus with hyperglycemia, without long-term current use of insulin COVID-19 virus infection Vitamin D deficiency HLD (hyperlipidemia) HTN (hypertension) Surgical History No pertinent past surgical history Family History Father Unknown family medical history Mother Unknown family medical history Social History Household Members: Spouse Housing: Apartment Alcohol intake: current Alcohol intake frequency: a few times a month Alcohol type: beer and wine Patient Tobacco Use Status: Former Tobacco user Years Smoked: 40 e-Cigarette/Vaping Use: Never Used service: No Current occupational status: employed Current occupation: [employer] Cognitive needs: No Hearing needs: No Vision needs: Yes Questionnaire PHQ-9 Over the last 2 weeks, how often have you been bothered by any of the following problems? 1. Little interest or pleasure in doing things: not at all 2. Feeling down, depressed, or hopeless: not at all 3. Trouble falling or staying asleep, or sleeping too much: more than half the days 4. Feeling tired or having little energy: more than half the days 5. Poor appetite or overeating: not at all 6. Feeling bad about yourself - or that you are a failure or have let yourself or your family down: not at all 7. Trouble concentrating on things, such as reading the newspaper or watching television: not at all 8. Moving or speaking so slowly that other people could have noticed. Or the opposite - being so fidgety or restless that you have been moving around a lot more than usual: not at all 9. Thoughts that you would be better off or of hurting yourself in some way: not at all Total score: 4 Depression Screening Interpretation: Negative Depression Screening Done: Yes 52089 - PHQ-9 Billing: Yes Source: Developed by Drs. Berry Luna, Leanna Roger, Larry Joshua and colleagues, with an educational rex from [email or web address]. Thrive Questionnaire Date Thrive assessed: 09/06/24 I am a: Patient What is your living situation today?: I have a steady place to live Within the past 12 months, did the food you bought not last and you didn't have the money to get more?: Sometimes True Within the past 12 months, did you worry whether your food would run out before you got money to buy more?: Never true Do you have trouble paying for medicines?: Yes Do you have trouble getting transportation to medical appointments?: No Do you have trouble paying your heating and electricity bill?: No Do you have trouble taking care of your child, family member or friend?: No Do you have trouble with day-to-day activities such as bathing, preparing meals, shopping, managing finances, etc.?: Yes Are you currently unemployed and looking for a job?: No Are you interested in more education?: No Please select the resources that you would like help with: Utilities Currently or been in a relationship where the following occur: No concerns reported THRIVE Score: 1 AUDIT C Alcohol Use Questionnaire (AUDIT-C) 1. How often do you have a drink containing alcohol?: 2-4 times a month 2. How many drinks containing alcohol do you have on a typical day when you are drinking?: 3 or 4 3. How often do you have six or more drinks on one occasion?: Never Total Score: 3 ORTEGA-7 AMB Questionnaire ORTEGA-7 Date ORTEGA - 7 assessed: 09/08/24 Feeling nervous, anxious, or on edge: 1 = Several days Not being able to stop or control worryin = Not at all Worrying too much about different things: 1 = Several days Trouble relaxin = Not at all Being so restless that it is hard to sit still: 0 = Not at all Becoming easily annoyed or irritable: 2 = More than half the days Feeling afraid as if something awful might happen: 0 = Not at all Total ORTEGA-7 score (0-4 normal; 5-9 mild; 10-14 moderate; 15-21 severe): 4 Source: Developed by Drs. Berry Luna, Leanna Roger, Larry Joshua and colleagues, with an educational rex from [email or web address]. ORTEGA-7 Assessment Billing ORTEGA-7 Assessment Tool: ORTEGA-7 Assessment 28586 Review of Systems Const Denies fatigue and Denies headache(s) Eyes Details: went to [facility] and had diabetes eye exam Denies change in vision ENT Denies change in voice, Denies dysphagia, Denies headache(s) and Denies hoarseness Card Denies chest pain, Denies irregular heart rhythm, Denies dyspnea and Reports other Resp Denies cough and Denies dyspnea GI Denies abdominal pain, Denies change in bowel habits, Denies dysphagia, Denies diarrhea and Denies nausea Reports nocturia, Denies dysuria and Denies vaginal discharge Musc Denies myalgias and Denies muscle cramps Skin/Breast Denies lesions and Denies rash Neuro Denies headache(s) Psych Denies anxiety and Denies depression Endo Denies cold intolerance, Denies fatigue and Denies heat intolerance Blane/Lymph Denies easy bruising Aller/Immun Reports no additional complaints Physical exam (Primary Care) Vital Signs: Last Vital Signs Pulse 82 09/08/24 10:23 BP 130/76 09/08/24 10:23 Pulse Ox 99 09/08/24 10:23 Oxygen Delivery Method Room Air 09/08/24 10:23 BMI result Body Mass Index 23.5 Tobacco/Smoking Status: Tobacco use Status Tobacco use date assessed 09/08/24 09/08/24 10:34 Patient Tobacco Use Status Former Tobacco user 09/08/24 10:25 e-Cigarette/Vaping Use Never Used 09/08/24 10:25 PHQ-9: PHQ-9 Score PHQ-9: Total score 12 09/08/24 10:53 Depression Screening Interpretation: Negative Thrive Assessment: Date of Thrive Assessment Date Thrive assessed 09/06/24 09/08/24 10:25 Currently or been in a relationship where the following occur: No concerns reported Advance Care Planning discussion: Completed/Scanned Date of discussion: 09/08/24 Who was present: Patient Forms completed: Health Care Proxy Time spent: 16-45 minutes Actual minutes spent: 3 Const General: cooperative, comfortable and no acute distress Orientation/consciousness: patient oriented x3 HENMT Ears: hearing grossly normal bilaterally, external ears normal, TM's normal bilaterally and EAC's normal General nose exam: Normal external nose present, Normal nasal mucous membranes and turbinates present and No nasal discharge present Mouth: Normal oral and palatal mucosa present, oropharynx normal and moist mucous membranes Throat: Yes posterior oropharynx normal Eyes General: appearance normal, both eyes and all related structures Pupils: Equal, round and reactive pupils present Neck Neck: Yes full ROM, Yes no lymphadenopathy and Yes supple Chest Breast/axilla palpation: normal palpation of the breasts Resp Effort & Inspection: normal respiratory effort and able to speak in complete sentences Auscultation: clear to auscultation bilaterally Cardio Rate: regular rate Rhythm: regular rhythm Heart sounds: S1 normal heart sound present and S2 normal heart sound present GI Inspection: Yes normal to inspection Palpation (GI): Soft to palpation, nontender and no masses Auscultation: normal bowel sounds General: Yes no CVA tenderness Back/Spine/Pelvis Back: no CVA tenderness Skin General skin exam: no rashes or lesions noted Neuro General: patient oriented x3, gait normal, tone normal, moves all extremities, no focal motor deficits and normal sensation to monofilament Cranial nerves: Yes Equal, round and reactive pupils present Cognition (Neuro): normal cognition Gait exam (Neuro): Normal gait present Motor exam (neuro): 5/5 motor strength present throughout Sensory Exam: double simultaneous stimulation for sensation normal Extrem General: Yes full ROM, Yes no joint enlargement, Yes no pedal edema, Yes no calf tenderness and Yes normal gait Psych Appearance: grossly normal and well kempt Mental Status: mental status grossly normal Speech and movement: Normal speech and movement present Affect: normal affect Coding Level of Care Code Est Pt Prev Care 40-64y(93062) Diagnoses Annual visit for general adult medical examination with abnormal findings Z00.01 Screening for malignant neoplasm of cervix Z12.4 Alcohol use disorder, mild, abuse F10.10 Hypertension, unspecified type I10 Hypertension type: unspecified Vitamin D deficiency E55.9 Type 2 diabetes mellitus with hyperglycemia, without long-term current use of insulin E11.65 Type 2 diabetes mellitus with diabetic neuropathy E11.40 Advanced directives, counseling/discussion Z71.89 Additional Codes PHQ-9 - 13801 - PHQ-9 Billing: Yes ([id number]) ORTEGA-7 Assessment Billing - ORTEGA-7 Assessment Tool: ORTEGA-7 Assessment 05428 ([id number]) Vital Signs *Quality* - Advance Care Planning discussion: Completed/Scanned ([id number]) Vital Signs *Quality* - Time spent: 16-45 minutes ([id number]) Assessment & Plan Assessment & Plan (1) Annual visit for general adult medical examination with abnormal findings: Code(s): Z00.01 - Encounter for general adult medical examination with abnormal findings Plan: Will check appropriate labs. Recommended dental visit every 6 months and yearly diabetes eye exam screening. Take adequate calcium in diet and vitamin-D 3 at 2000 IU per cap once a day, in addition to weight-bearing exercises to help maintain good muscle tone and weight control. Instructed to do self-breast exam, and continue to get yearly mammogram, Cologuard testing ordered, patient declined getting colonoscopy procedure. Up-to-date with her vaccinations but has not yet had her COVID booster. (2) Screening for malignant neoplasm of cervix: Code(s): Z12.4 - Encounter for screening for malignant neoplasm of cervix Plan: Referral to software engineer kernel at [facility] for her routine Pap and pelvic exam. (3) Alcohol use disorder, mild, abuse: Code(s): F10.10 - Alcohol abuse, uncomplicated Category: Medical Plan: Patient has been cutting back on her alcohol intake but not completely. Strongly encouraged to quit all alcohol intake been on weekends. Declines referral for assistance with alcohol cessation. (4) HTN (hypertension): Code(s): I10 - Essential (primary) hypertension Category: Medical Qualifiers: Hypertension type: unspecified Qualified Code(s): I10 - Essential (primary) hypertension Plan: Blood pressure at goal of less than 130/80. Continue with current medication. Reinforced importance of following a low sodium diet, getting regular exercise, and lowering stress levels. (5) Vitamin D deficiency: Code(s): E55.9 - Vitamin D deficiency, unspecified Category: Medical Plan: Will check vitamin-D level (6) Type 2 diabetes mellitus with hyperglycemia, without long-term current use of insulin: Code(s): E11.65 - Type 2 diabetes mellitus with hyperglycemia Category: Medical Plan: Currently followed at [facility] endocrine clinic currently on metformin ER, pioglitazone, dulaglutide (7) Type 2 diabetes mellitus with diabetic neuropathy: Code(s): E11.40 - Type 2 diabetes mellitus with diabetic neuropathy, unspecified Category: Medical Plan: Patient currently followed at [facility] endocrine clinic for her diabetes mellitus which is improving, stressed importance of dietary compliance and taking her medications as directed. Up-to-date with her diabetes retinopathy screening. Increase gabapentin dose to 400 mg 1 tablet every 8 hours. Will check vitamin B6 and B12 level as well as vitamin B1 (8) Advanced directives, counseling/discussion: Code(s): Z71.89 - Other specified counseling Plan: Initiated the conversation about Advanced Directives. Advanced Directives help patients prepare for current and future decisions about their medical treatment and place of care. Discussed with patient that it is a process where a patients current condition and prognosis are reviewed, their wishes for information regarding their illness are elicited, and likely medical dilemmas are presented and options discussed. Healthcare proxy form completed today. The form can be amended as needed, reviewed yearly and make changes as needed Orders: Orders Vitamin D 25-OH Total 09/08/24 E11.65 - Type 2 diabetes mellitus with hyperglycemia, E55.9 - Vitamin D deficiency, unspecified, F10.10 - Alcohol abuse, uncomplicated, G62.9 - Polyneuropathy, unspecified, Z28.21 - Immunization not carried out because of patient refusal Vitamin B6 09/08/24 E11.65 - Type 2 diabetes mellitus with hyperglycemia, E55.9 - Vitamin D deficiency, unspecified, F10.10 - Alcohol abuse, uncomplicated, G62.9 - Polyneuropathy, unspecified, Z28.21 - Immunization not carried out because of patient refusal Vitamin B12 and Folate 09/08/24 E11.65 - Type 2 diabetes mellitus with hyperglycemia, E55.9 - Vitamin D deficiency, unspecified, F10.10 - Alcohol abuse, uncomplicated, G62.9 - Polyneuropathy, unspecified, Z28.21 - Immunization not carried out because of patient refusal Vitamin B1 09/08/24 E11.65 - Type 2 diabetes mellitus with hyperglycemia, E55.9 - Vitamin D deficiency, unspecified, F10.10 - Alcohol abuse, uncomplicated, G62.9 - Polyneuropathy, unspecified, Z28.21 - Immunization not carried out because of patient refusal MM tomosynthesis screening BI 09/08/24 Z12.31 - Encounter for screening mammogram for malignant neoplasm of breast Referrals MAINTENANCE DATA ANALYST Referral Z12.4 - Encounter for screening for malignant neoplasm of cervix Cologuard Test Z12.11 - Encounter for screening for malignant neoplasm of colon, Z12.12 - Encounter for screening for malignant neoplasm of rectum Medications: Changed From gabapentin 300 mg PO BID 30 days 60 caps 5RF To gabapentin 300 mg PO Q8H 30 days 90 caps 5RF
== END 2024-09-08 11:15 | disposition home or self-care (01) ==
PROVIDERS: PCP Internal Medicine; Visit Provider Internal Medicine
DX: Z00.01 Encounter for general adult medical examination with abnormal findings (principal); Z12.4 Encounter for screening for malignant neoplasm of cervix; F10.10 Alcohol abuse, uncomplicated; I10 Essential (primary) hypertension; E55.9 Vitamin D deficiency, unspecified; E11.65 Type 2 diabetes mellitus with hyperglycemia; E11.40 Type 2 diabetes mellitus with diabetic neuropathy, unspecified; Z71.89 Other specified counseling; Z00.00 Encounter for general adult medical examination without abnormal findings

== ENCOUNTER 2025-01-04 07:52 | Outpatient (AMB) | payer BC, SELFPAY ==
--- NOTE | 2025-01-04 07:01 | A.OFFVIS_ITS ---
Vital Signs 01/04/25 07:58 Height 5 ft 4 in Weight 136 lb 10.986 oz BMI 23.5 BP 126/84 Position Sitting Pulse 68 Pulse Source Pulse Oximeter Pulse Oximetry (%) 96 Oxygen Delivery Method Room Air Intake Visit Reasons: T2DM Intake Note: Patient presents today for a follow-up on Type 2 Diabetes Mellitus: Last Diabetic eye exam was on: DUE Last Podiatry exam was on: Does not see a Vocational Training Instructor Most recent HbA1c: 7.4%, 01/04/2025 Random Glucose- 100 mg/dL, Today Allergies bee venom protein (honey bee) Allergy (Severe, Verified 09/12/24 01:25) Swells Up HPI Comments Details: 59 YO F with PMHx T2DM, HTN, HLD who is seen in F/U for T2DM. full antibodies for IMMANUEL were negative 2018. However, her C-peptide was low for the level of hyperglycemia, indicating that she does have some beta cell dysfunction. HgbA1C 7.4% 01/04/25 Initially diagnosed with T2DM in November 2017 when presented with numbness/tingling in her feet. Was initially started on treatment with Metformin. She is unable to tolerate more than 1000mg daily Current regimen Metformin XR 500 mg PO bid, Trulicity 1.5 mg weekly and Actos 15 mg PO daily. Does not have meter. Tests in the am 130's 130-140's She had stopped all of her medications before her visit in June. She is now taking them consistently taking but not following a consistent meal plan..She has had some weakness in her arms and legs, several episodes of near syncope, synocpe in the past which has resolved. She does c/o mild numbness in her right foot Has newer onset nephropathy: microalbumin 297 07/17 eGFR>60 + neuropathy last eye exam january 2024 will schedule for January Walks/runs 2 miles every other day [facility] Medical History (Updated 09/12/24 @ 01:39 by Alanna Lanza MD) Alcohol use disorder, mild, abuse Elevated liver enzymes Rash and nonspecific skin eruption Type 2 diabetes mellitus with diabetic neuropathy Type 2 diabetes mellitus with hyperglycemia, without long-term current use of insulin COVID-19 virus infection Vitamin D deficiency HLD (hyperlipidemia) HTN (hypertension) Surgical History No pertinent past surgical history Family History Father Unknown family medical history Mother Unknown family medical history Social History Household Members: Spouse Housing: Apartment Alcohol intake: current Alcohol intake frequency: a few times a month Alcohol type: beer and wine Patient Tobacco Use Status: Former Tobacco user Years Smoked: 40 e-Cigarette/Vaping Use: Never Used service: No Current occupational status: employed Current occupation: Hotel Cognitive needs: No Hearing needs: No Vision needs: Yes Physical Exam Vital Signs: Last Vital Signs Pulse 68 01/04/25 07:58 BP 126/84 01/04/25 07:58 Pulse Ox 96 01/04/25 07:58 Oxygen Delivery Method Room Air 01/04/25 07:58 BMI result Body Mass Index 23.5 Const Other: Absence of Cushingoid features. Absence of acromegalic features. Neck exam reveals nl size thyroid about 15 gms. No thyroid nodules palpable. Heart S1 S2, Reg R/R. No M/R G. Skin exam reveals absence of vitiligo or acanthosis nigricans Visual exam of foot performed. No ulcerations or open lesions. No inter digit maceration or fissuring. No onychomycosis, no callouses. Sensation intact to monofilament exam. Vibratory sensation is normal with 128 Hz tuning fork. Results AMB Hemoglobin A1c AMB Hemoglobin A1c 7.4 % Last Edit by GABY Barnes on 01/04/25 08:14 Results Reviewed Results Reviewed: Laboratory Last Values Glucose (Clinic) 100 mg/dL (60-115) 01/04/25 08:03 Hgb A1c (Clinic) 7.4 % (4.0-6.0) H 01/04/25 08:13 Assessment & Plan Assessment & Plan (1) Type 2 diabetes mellitus with hyperglycemia, without long-term current use of insulin: Code(s): E11.65 - Type 2 diabetes mellitus with hyperglycemia Category: Medical Plan: Type 2 diabetic with negative antibodies tested 2018. A1c had jumped to over 14% last June as she had not been taking her medication at that time. She has been consistent with med since then. She has not been following a balanced diet but has increased her exercise. A1c today is 7.4% and I suggested that we change Trulicity to I the Mounjaro or Ozempic which she declined. She will continue to focus on exercise and trying to balance her diet. We talked about cutting back on alcohol use as she is currently having 2 drinks per day and 3 on the weekends per night. She has agreed to decrease the alcohol call consumption to 1 on the week nights and no more than 2 on the weekend nights. The patient had an opportunity to ask questions regarding treatment plan. The patient expressed understanding and agreement with the above treatment plan. The patient is aware they should contact our office by phone for worsening glucose readings or for any low blood sugars which may warrant a change in diabetes medication. Compliance is encouraged with medications and any followup testing/consults which may have been ordered. Orders: Orders AMB Hemoglobin A1c Today E11.65 - Type 2 diabetes mellitus with hyperglycemia Coding Level of Care Code Est Pt Level 4 (06233) Complex EM visit Add On G2211 Diagnoses Type 2 diabetes mellitus with hyperglycemia, without long-term current use of insulin E11.65 Time Spent (min) 30 Comment Time spent reviewing labs/provider notes, face to face, chart doc
[2025-01-04 07:58] VITALS: BP 126/84; PULSE 68; O2SAT 96; BMI 23.5
[2025-01-04 08:09] LABS: Glucose, Whole Blood 100 mg/dL (60-115)
== END 2025-01-04 08:29 | disposition home or self-care (01) ==
LOC: HO.ENCR 07:53
PROVIDERS: PCP Internal Medicine; Visit Provider Nurse Practitioner Adult Health
DX: E11.65 Type 2 diabetes mellitus with hyperglycemia (principal)
CPT/HCPCS: 99214

== ENCOUNTER → 2025-01-04 07:52 | Outpatient (BNVA) | payer BC, SELFPAY | PROVIDERS: PCP Internal Medicine; Visit Provider Nurse Practitioner Adult Health | DX: E11.65 Type 2 diabetes mellitus with hyperglycemia (principal) | CPT/HCPCS: 82947; 83036 ==

== ENCOUNTER 2025-04-03 08:41 | Outpatient (AMB) | payer BC, SELFPAY ==
--- NOTE | 2025-04-03 08:45 | A.OFFVIS_ITS ---
Vital Signs 04/03/25 08:55 Height 5 ft 4 in Weight 134 lb 7.712 oz BMI 23.1 BP 120/66 Blood Pressure Location Rt brachial Position Sitting Pulse 65 Pulse Source Pulse Oximeter Intake Visit Reasons: T2DM Intake Note: Patient presents today for a follow-up on Type 2 Diabetes Mellitus: Last Diabetic eye exam was on: Needs a new referral Last Podiatry exam was on: Does not see a [facility] Most recent HbA1c: 7.2%, 04/03/2025 Random Glucose- 134 mg/dL, Today Greeting Card Editor Required: No Accompanied by: Self / Same As Patient Allergies bee venom protein (honey bee) Allergy (Severe, Verified 04/03/25 08:46) Swells Up Medication List - Last Reconciled 04/03/25 by Kristin Velarde PA-C atorvastatin 10 mg PO DAILY blood sugar diagnostic (OneTouch Verio test strips) As directed dulaglutide (Trulicity) 4.5 mg (0.5 mL) subcut QWEEK gabapentin 300 mg PO Q8H 30 days lancets (OneTouch Delica Plus Lancet) As directed lisinopril 5 mg PO DAILY metformin ER 500 mg PO BID 30 days pioglitazone 30 mg PO DAILY HPI HPI T2DM: Details: Patient is a 60-year-old female with a significant past medical history of hypertension vitamin-D deficiency, hyperlipidemia, alcohol abuse and type 2 diabetes with neuropathy presenting today for a follow up regarding diabetes. Endo: Dm-most recent A1c 7.2. She was diagnosed with diabetes in 2018. She was previously following with my colleague. She has had negative antibody testing however the C-peptide level was low indicating some beta cell dysfunction. She is currently on metformin 500 mg twice a day, pioglitazone 30 mg daily and Trulicity 3 mg weekly. She does not tolerate higher doses of metformin. Denies any hyper or hypoglycemia. On gabapentin for neuropathy CV: Blood pressure today in the office is 120/66. She is currently on lisinopril 5 mg daily. Cholesterol has been controlled with atorvastatin 10 mg daily. [facility] Medical History Alcohol use disorder, mild, abuse Elevated liver enzymes Rash and nonspecific skin eruption Type 2 diabetes mellitus with diabetic neuropathy Type 2 diabetes mellitus with hyperglycemia, without long-term current use of insulin COVID-19 virus infection Vitamin D deficiency HLD (hyperlipidemia) HTN (hypertension) Surgical History No pertinent past surgical history Family History Father Unknown family medical history Mother Unknown family medical history Social History Household Members: Spouse Housing: Apartment Alcohol intake: current Alcohol intake frequency: a few times a month Alcohol type: beer and wine Patient Tobacco Use Status: Former Tobacco user Years Smoked: 40 e-Cigarette/Vaping Use: Never Used service: No Current occupational status: employed Current occupation: [email or web address] Cognitive needs: No Hearing needs: No Vision needs: Yes Physical Exam Vital Signs: Last Vital Signs Pulse 65 04/03/25 08:55 BP 120/66 04/03/25 08:55 BMI result Body Mass Index 23.1 Const Orientation/consciousness: patient oriented x3 Neck Neck: Yes no lymphadenopathy Thyroid: Thyroid normal Carotids: no bruits Resp Auscultation: clear to auscultation bilaterally Cardio Rate: regular rate Rhythm: regular rhythm Heart sounds: S1 normal heart sound present and S2 normal heart sound present Peripheral pulses: dorsalis pedis present Neuro General: patient oriented x3, gait normal and no focal motor deficits Extrem Other: Monofilament sensation intact bilaterally. Vibratory sensation intact bilaterally. Skin intact. General: Yes normal to inspection Results AMB Hemoglobin A1c AMB Hemoglobin A1c 7.2 % Last Edit by GABY Barnes on 04/03/25 09:10 Results Reviewed Results Reviewed: Laboratory Last Values Glucose (Clinic) 134 mg/dL (60-115) H 04/03/25 08:59 Laboratory Tests 01/04/25 01/04/25 08:03 08:13 Glucose (Clinic) 100 Hgb A1c (Clinic) 7.4 H Assessment & Plan Assessment & Plan (1) Type 2 diabetes mellitus with hyperglycemia, without long-term current use of insulin: Code(s): E11.65 - Type 2 diabetes mellitus with hyperglycemia Category: Medical Plan: Increase Trulicity to 4.5 mg weekly Continue metformin and pioglitazone Referral to ophthalmology Declines referral to Podiatry (2) HTN (hypertension): Code(s): I10 - Essential (primary) hypertension Category: Medical Qualifiers: Hypertension type: unspecified Qualified Code(s): I10 - Essential (primary) hypertension Plan: WNL. Continue current regimen Plan Repeat labs prior to our appointment. Orders: Orders Comprehensive Met. Panel Today E11.65 - Type 2 diabetes mellitus with hyperglycemia, I10 - Essential (primary) hypertension Lipid Panel Today E11.65 - Type 2 diabetes mellitus with hyperglycemia, I10 - Essential (primary) hypertension Microalbumin, Random (w Creat) Today E11.65 - Type 2 diabetes mellitus with hyperglycemia, I10 - Essential (primary) hypertension AMB Hemoglobin A1c Today E11.65 - Type 2 diabetes mellitus with hyperglycemia Hemoglobin A1c Today E11.65 - Type 2 diabetes mellitus with hyperglycemia, I10 - Essential (primary) hypertension, R73.01 - Impaired fasting glucose Referrals Ophthalmology Referral E11.65 - Type 2 diabetes mellitus with hyperglycemia, I10 - Essential (primary) hypertension Medications: New dulaglutide (Trulicity) 4.5 mg (0.5 mL) subcut QWEEK 2 mL 5RF Refilled metformin ER 500 mg PO BID 60 tabs 11RF 30 days pioglitazone 30 mg PO DAILY 30 tabs 5RF Discontinued dulaglutide (Trulicity) Discontinued Reason: Doctor's Order 3 mg (0.5 mL) subcut QWEEK 28 days 2 mL 11RF Coding Level of Care Code Est Pt Level 4 (61452) Complex EM visit Add On G2211 Diagnoses Type 2 diabetes mellitus with hyperglycemia, without long-term current use of insulin E11.65 Hypertension, unspecified type I10 Hypertension type: unspecified
[2025-04-03 08:55] VITALS: BP 120/66; PULSE 65; BMI 23.1
[2025-04-03 09:04] LABS: Glucose, Whole Blood 134 mg/dL (60-115)
== END 2025-04-03 09:24 | disposition home or self-care (01) ==
LOC: HO.ENCR 08:41
PROVIDERS: Visit Provider Physician Assistant
DX: E11.65 Type 2 diabetes mellitus with hyperglycemia (principal); I10 Essential (primary) hypertension

== ENCOUNTER → 2025-04-03 08:41 | Outpatient (BNVA) | payer BC, SELFPAY | PROVIDERS: Visit Provider Physician Assistant | DX: E11.65 Type 2 diabetes mellitus with hyperglycemia (principal); E11.40 Type 2 diabetes mellitus with diabetic neuropathy, unspecified; I10 Essential (primary) hypertension; E55.9 Vitamin D deficiency, unspecified; E78.5 Hyperlipidemia, unspecified | CPT/HCPCS: 82947; 83036 ==

== ENCOUNTER 2025-06-30 06:37 | Outpatient (REF) | payer BC, SELFPAY ==
[2025-06-30 08:04] LABS: Alanine Aminotransferase 26 U/L (0-31); Albumin Level 4.6 g/dL (3.5-5.0); Alkaline Phosphatase 65 U/L (39-117); Anion Gap 12 (12-20); Aspartate Amino Transferase 31 U/L (5-31); Blood Urea Nitrogen 30 mg/dL (9-16); Calcium 9.8 mg/dL (8.4-10.2); Carbon Dioxide 26 mmol/L (22-29); Chloride 103 mmol/L (96-108); Cholesterol 156 mg/dL (<200); Estimated Glomerular Filt Rate > 60; HDL Cholesterol 76 mg/dL (>40); Potassium 4.8 mmol/L (3.3-5.1); Sodium 136 mmol/L (135-145); Total Protein 7.5 g/dL (6.5-8.0); Triglycerides 62 mg/dL (<150)
[2025-06-30 08:26] LABS: Microalbum/Creatinine Ratio Ur 8.6 ug/mg cr (<30)
== END 2025-06-30 06:38 | disposition home or self-care (01) ==
LOC: HO.LAB 06:37
PROVIDERS: PCP Internal Medicine; Visit Provider Physician Assistant
DX: I10 Essential (primary) hypertension (principal); E11.65 Type 2 diabetes mellitus with hyperglycemia
CPT/HCPCS: 36415; 80053; 80061; 82043; 82570; 83036

== ENCOUNTER 2025-07-03 08:18 | Outpatient (AMB) | payer BC, SELFPAY ==
[2025-07-03 08:24] VITALS: BP 122/80; PULSE 70; O2SAT 98; BMI 23.0
--- NOTE | 2025-07-03 08:24 | A.OFFVIS_ITS ---
Vital Signs 07/03/25 08:24 Height 5 ft 4 in Weight 134 lb BMI 23.0 BP 122/80 Blood Pressure Location Lt brachial Position Sitting Pulse 70 Pulse Source Pulse Oximeter Pulse Oximetry (%) 98 Oxygen Delivery Method Room Air Intake Visit Reasons: dm Intake Note: Patient present today for Type 2 Diabetes Mellitus Last Diabetic eye exam: Last eye exam was 2 weeks ago. Last Podiatry Visit: Doesn't have one Random Glucose: 93 mg/dl HgA1C: 7.1% 06/30/25 Sheeting Puller Required: No Accompanied by: Self / Same As Patient Allergies bee venom protein (honey bee) Allergy (Severe, Verified 07/03/25 08:27) Swells Up Medication List - Last Reconciled 07/03/25 by Kristin Velarde PA-C atorvastatin 10 mg PO DAILY blood sugar diagnostic ([employer] HealthTouch Verio test strips) As directed dulaglutide (Trulicity) 4.5 mg (0.5 mL) subcut QWEEK gabapentin 300 mg PO Q8H 30 days lancets ([employer] HealthTouch Delica Plus Lancet) As directed lisinopril 5 mg PO DAILY metformin ER 500 mg PO BID 30 days pioglitazone 30 mg PO DAILY HPI HPI dm: Details: Patient is a 60-year-old female with a significant past medical history of hypertension vitamin-D deficiency, hyperlipidemia, alcohol abuse and type 2 diabetes with neuropathy presenting today for a follow up regarding diabetes. Endo: Dm-most recent A1c 7.1. She was diagnosed with diabetes in 2018. She was previously following with my colleague. She has had negative antibody testing however the C-peptide level was low indicating some beta cell dysfunction. She is currently on metformin 500 mg twice a day, pioglitazone 30 mg daily and Trulicity 4.5 mg weekly. -tolerating plan well. No side effects. She is still cheating a little on diet but is very physically active. She does not tolerate higher doses of metformin. Denies any hyper or hypoglycemia. On gabapentin for neuropathy Saw ophthalmology 2 weeks ago and was told no retinopathy. CV: Blood pressure today in the office is 122/80. She is currently on lisinopril 5 mg daily. Cholesterol has been controlled with atorvastatin 10 mg daily. [facility] Medical History (Updated 07/03/25 @ 08:47 by Kristin Velarde PA-C) HLD (hyperlipidemia) Alcohol use disorder, mild, abuse Elevated liver enzymes Rash and nonspecific skin eruption Type 2 diabetes mellitus with diabetic neuropathy Type 2 diabetes mellitus with hyperglycemia, without long-term current use of insulin COVID-19 virus infection Vitamin D deficiency HTN (hypertension) Surgical History No pertinent past surgical history Family History Father Unknown family medical history Mother Unknown family medical history Social History Household Members: Spouse Housing: Apartment Alcohol intake: current Alcohol intake frequency: a few times a month Alcohol type: beer and wine Patient Tobacco Use Status: Former Tobacco user Years Smoked: 40 e-Cigarette/Vaping Use: Never Used service: No Current occupational status: employed Current occupation: [employer] Cognitive needs: No Hearing needs: No Vision needs: Yes Physical Exam Vital Signs: Last Vital Signs Pulse 70 07/03/25 08:24 BP 122/80 07/03/25 08:24 Pulse Ox 98 07/03/25 08:24 Oxygen Delivery Method Room Air 07/03/25 08:24 BMI result Body Mass Index 23.0 Const Orientation/consciousness: patient oriented x3 HEENT Ears: hearing grossly normal bilaterally Neck Neck: Yes no lymphadenopathy Thyroid: Thyroid normal Carotids: no bruits Lymphatic: no lymphadenopathy noted Resp Auscultation: clear to auscultation bilaterally Cardio Rate: regular rate Rhythm: regular rhythm Heart sounds: S1 normal heart sound present and S2 normal heart sound present Peripheral pulses: dorsalis pedis present Skin General skin exam: no rashes or lesions noted Neuro General: patient oriented x3, gait normal and no focal motor deficits Extrem Other: Monofilament sensation intact bilaterally. Vibratory sensation intact bilaterally. Skin intact. General: Yes normal to inspection Results Reviewed Results Reviewed: Laboratory Tests 06/30/25 06:48 Creatinine 0.86 Estimated GFR > 60 Random Glucose 108 Hemoglobin A1c % 7.1 H AST 31 ALT 26 Triglycerides 62 Cholesterol 156 LDL Cholesterol, Calc 68 HDL Cholesterol 76 Laboratory Tests 06/30/25 06:44 Urine Creatinine 172.43 Urine Microalbumin 15.0 Microalb/Creat Ratio 8.6 Assessment & Plan Assessment & Plan (1) Type 2 diabetes mellitus with hyperglycemia, without long-term current use of insulin: Code(s): E11.65 - Type 2 diabetes mellitus with hyperglycemia Category: Medical Plan: continue Trulicity to 4.5 mg weekly Continue metformin 500 mg bid increase pioglitazone to 45 mg daily continue diet changes and physical activity (2) HTN (hypertension): Code(s): I10 - Essential (primary) hypertension Category: Medical Qualifiers: Hypertension type: unspecified Qualified Code(s): I10 - Essential (primary) hypertension Plan: WNL. Continue current regimen (3) HLD (hyperlipidemia): Code(s): E78.5 - Hyperlipidemia, unspecified Category: Medical Qualifiers: Hyperlipidemia type: unspecified Qualified Code(s): E78.5 - Hyperlipidemia, unspecified Plan . Orders: Orders Hemoglobin A1c Today E11.65 - Type 2 diabetes mellitus with hyperglycemia, E78.5 - Hyperlipidemia, unspecified, I10 - Essential (primary) hypertension, R73.01 - Impaired fasting glucose Comprehensive [place]. Panel Fast Today E11.65 - Type 2 diabetes mellitus with hyperglycemia, E78.5 - Hyperlipidemia, unspecified, I10 - Essential (primary) hypertension Medications: New pioglitazone 45 mg PO DAILY 90 tabs 2RF Discontinued pioglitazone Discontinued Reason: Doctor's Order 30 mg PO DAILY 30 tabs 5RF Coding Level of Care Code Est Pt Level 4 (81329) Complex EM visit Add On G2211 Diagnoses Type 2 diabetes mellitus with hyperglycemia, without long-term current use of insulin E11.65 Hypertension, unspecified type I10 Hypertension type: unspecified Hyperlipidemia, unspecified hyperlipidemia type E78.5 Hyperlipidemia type: unspecified
[2025-07-03 08:33] LABS: Glucose, Whole Blood 93 mg/dL (60-115)
== END 2025-07-03 08:53 | disposition home or self-care (01) ==
LOC: HO.ENCR 08:18
PROVIDERS: Visit Provider Physician Assistant
DX: E11.65 Type 2 diabetes mellitus with hyperglycemia (principal); I10 Essential (primary) hypertension; E78.5 Hyperlipidemia, unspecified

== ENCOUNTER → 2025-07-03 08:18 | Outpatient (BNVA) | payer BC, SELFPAY | PROVIDERS: Visit Provider Physician Assistant | DX: E11.65 Type 2 diabetes mellitus with hyperglycemia (principal); E11.40 Type 2 diabetes mellitus with diabetic neuropathy, unspecified; E78.5 Hyperlipidemia, unspecified; I10 Essential (primary) hypertension; Z79.84 Long term (current) use of oral hypoglycemic drugs; Z79.85 Long-term (current) use of injectable non-insulin antidiabetic drugs | CPT/HCPCS: 82947 ==